=== PATIENT | female | born 1990 | race Caucasian/White ===

== ENCOUNTER 2016-03-10 18:11 | Emergency (ER) | payer MEDICAID, OTHER ==
[~2016-03-10] VITALS: Ht 165.1 cm; Wt 60.5 kg
[~2016-03-10 18:11] MED LIST: PRENTAB60
[2016-03-10 18:14] VITALS: BP 119/71; PULSE 104; RESP 14; TEMP 98.1; O2SAT 96
--- NOTE | 2016-03-10 20:03 | PD ---
HPI Chief Complaint: Skin Problem Time Seen by Provider: 20:00 Travel History International Travel<30 days: No Contact w/Intl Traveler<30days: No Traveled to known affect area: No History of Present Illness HPI 25-year-old white female 1 para 0 with approximately 20 week gestational age presents emergency Department with complaints of a rash which she has had now for nearly 2 months. She's had a history of eczema in the past and psoriasis. She saw a free lance model approximately one month ago when the rash seemed to be getting worse. She was told to take over-the- counter hydrocortisone cream and moisturizing cream. She has not seen an OB doctor yet. She states that she is here requesting a shot of steroids or oral prednisone. She has had no fever chills. She has had some runny nose, congestion and slight cough. She's noticed some increasing drainage from the skin around her breasts underneath her brassiere. She denies any nausea vomiting. No abdominal pain. No urinary symptoms. PFSH Past Medical History Anxiety: Yes ?: LMP: 10/05/15 : 1 Para: 0 Social History Alcohol Use: No Tobacco Use: No Substance Use: No Allergies-Medications (Allergen,Severity, Reaction): Coded Allergies: No Known Allergies (Unverified , 03/10/16) Reported Meds & Prescriptions Reported Meds & Active Scripts Active Reported 19 ( Vit W/ Docusate-Fe Fu) 1 Tab Tab Review of Systems Except as stated in HPI: all other systems reviewed are Neg Physical Exam Narrative GENERAL: This is a well-nourished, well-developed patient, in no apparent distress. The patient is examined with Adi present SKIN: The patient has patches of erythema with dry scaly skin excoriation. These are located to her forehead around her face, neck, upper and lower extremities. Under her right breast greater than left. Around her nipples area. HEAD: Atraumatic. Normocephalic. EYES: PERRL, EOMI, no discharge or injection. No scleral icterus. EARS: Clear NOSE: Nasal turbinates appear normal. THROAT: Mucosa pink and moist. Airway patent. NECK: Trachea midline. supple, moves head freely. LUNGS: Clear to auscultation. CV: Regular in rhythm. ABDOMEN: Soft nontender. Gravid uterus. EXT: No clubbing cyanosis or edema. Data Data Last Documented VS Vital Signs Date Time Temp Pulse Resp B/P Pulse Ox O2 Delivery O2 Flow Rate FiO2 03/10/16 18:14 98.1 104 14 119/71 96 Orders Diphenhydramine (Benadryl) (03/10/16 20:15) Prednisone (Deltasone) (03/10/16 20:15) MDM Medical Decision Making Medical Screen Exam Complete: Yes Emergency Medical Condition: Yes Medical Record Reviewed: Yes Differential Diagnosis MDM: High Differential diagnoses: Abscess, folliculitis, cellulitis, lymphangitis, abrasion, contact dermatitis Narrative Course Patient's given 50 g of Benadryl and 40 mg of prednisone. This is acute eczema Diagnosis Primary Impression: eczema exacerbation Patient Instructions: General Instructions Additional Instructions: Rest. Oatmeal or Aveeno bath. White Crisco. 25-50 mg of Benadryl every 6 hours as needed for itching. Prednisone. Recheck with your free lance model and OB within 1 week. Med/Other Pt SpecificInfo: Prescription(s) given, Wound Care Scripts Prednisone (Deltasone)20 Mg Tab20 Mg PO BID #14 TAB Prov:Cedrick Foreman MD 03/10/16 Disposition: 01 DISCHARGE HOME Condition: Stable Rc Marshall Mar 10, 2016 20:03
[2016-03-10] MEDS ORDERED: diphenhydrAMINE HCL 50 MG CAP PO ONE (20:15)
[2016-03-10] MEDS ORDERED: predniSONE 20 MG TAB PO ONE (20:15)
[2016-03-10] MEDS ORDERED: PRED-503 PO (20:16)
[2016-04-06] MEDS ORDERED: TRICTAB PO (17:30)
[2016-04-07] MEDS ORDERED: HYDR2.5O TOPICAL (21:31)
[2016-04-07] MEDS ORDERED: HYDR0.2O7 TOPICAL (21:31)
[2016-04-17] MEDS ORDERED: HYDR0.2O7 TOPICAL (09:49)
[2016-04-30] MEDS ORDERED: [UNRECOGNIZED DRUG - CODE] (17:10)
[2016-05-01] MEDS ORDERED: PRED20 PO (22:29)
[2016-05-14] MEDS ORDERED: HYDR2.5O TOPICAL (07:28)
[2016-06-01] MEDS ORDERED: TYLE325T PO (00:35)
[2016-06-07] MEDS ORDERED: HYDR2.5O TOPICAL (06:32)
[2016-06-07] MEDS ORDERED: PRED20 PO (06:32)
[2016-06-07] MEDS ORDERED: HYDR0.2O7 TOPICAL (06:32)
[2016-06-27] MEDS ORDERED: TETA1INJ6 IM (16:12)
[2016-07-04] MEDS ORDERED: PRED20 PO (17:28)
[2016-07-30] MEDS ORDERED: PRED20 PO (17:40)
[2016-07-30] MEDS ORDERED: HYDR0.2O7 TOPICAL (17:44)
== END 2016-03-10 20:54 | disposition home or self-care (01) ==
LOC: NEPB 18:11
DX: O26.892 Other specified pregnancy related conditions, second trimester (principal); L30.9 Dermatitis, unspecified; L40.9 Psoriasis, unspecified
CPT/HCPCS: 99283

== ENCOUNTER 2016-03-20 11:02 | Emergency (ER) | payer MEDICAID ==
[~2016-03-20] VITALS: Ht 165.1 cm; Wt 65.0 kg
[~2016-03-20 11:02] MED LIST changes: +PRED-503 PO
[2016-03-20 11:03] VITALS: BP 114/63; PULSE 105; RESP 14; TEMP 98.1; O2SAT 97
[2016-03-20] MEDS ORDERED: TRIA.025%T TOPICAL (13:02)
[2016-03-20] MEDS ORDERED: PRED20 PO (13:02)
[2016-03-20] MEDS ORDERED: VIST50CA PO (13:02)
--- NOTE | 2016-03-20 13:03 | PD ---
HPI Chief Complaint: Skin Problem Time Seen by Provider: 12:30 Travel History International Travel<30 days: No Contact w/Intl Traveler<30days: No Traveled to known affect area: No History of Present Illness HPI Patient is a 25-year-old female who presents emergency department for evaluation of a rash. Patient is 21 weeks with her first child, her symptoms started approximately 3 weeks ago. She was seen in the emergency Department 10 days ago and diagnosed with eczema, given a short course of oral steroids which she states improved her symptoms but when the steroids were completed her symptoms returned. She states that the rash is extremely itchy and for the last 2 days her face has become more red and aggravated, additionally rashes affecting her breasts. Eyes any wheezing, fevers, chills. PFSH Past Medical History Anxiety: Yes Musculoskeletal: Yes (eczema) ?: LMP: 23 WEEKS : 1 Para: 0 Family History Family History: Negative Social History Alcohol Use: No Tobacco Use: No Substance Use: No Allergies-Medications (Allergen,Severity, Reaction): Coded Allergies: No Known Allergies (Unverified , 03/14/16) Reported Meds & Prescriptions Reported Meds & Active Scripts Active Deltasone (Prednisone) 20 Mg Tab 20 Mg PO BID Reported 19 ( Vit W/ Docusate-Fe Fu) 1 Tab Tab Review of Systems Except as stated in HPI: all other systems reviewed are Neg General / Constitutional: No: Fever, Chills Skin: Positive Rash, Positive Itching, Positive Hives Physical Exam Narrative GENERAL: Well-nourished, well-developed patient. SKIN: Warm and dry. Hyperpigmented, well-demarcated plaques noted to bilateral arms, chest, breasts, face. No induration noted. HEAD: Normocephalic. EYES: No scleral icterus. No injection or drainage. NECK: Supple, trachea midline. No JVD or lymphadenopathy. CARDIOVASCULAR: Regular rate and rhythm without murmurs, gallops, or rubs. RESPIRATORY: Breath sounds equal bilaterally. No accessory muscle use. GASTROINTESTINAL: Abdomen soft, non-tender, nondistended. MUSCULOSKELETAL: No cyanosis, or edema. BACK: Nontender without obvious deformity. No CVA tenderness. Data Data Last Documented VS Vital Signs Date Time Temp Pulse Resp B/P Pulse Ox O2 Delivery O2 Flow Rate FiO2 1/24/17 11:03 98.1 105 14 114/63 97 Room Air [facility] Medical Decision Making Medical Screen Exam Complete: Yes Emergency Medical Condition: Yes Interpretation(s) Vital Signs Date Time Temp Pulse Resp B/P Pulse Ox O2 Delivery O2 Flow Rate FiO2 03/20/16 11:03 98.1 105 14 114/63 97 Room Air Differential Diagnosis Eczema versus PUPP versus atopic dermatitis during versus allergic reaction versus other Narrative Course Patient is a 25-year-old female who presents to the emergency department for evaluation of a rash to her arms, chest, breasts, face. Patient is a history of eczema, she was seen and evaluated emergency department 10 days ago and prescribed a short course of oral steroids which she states relieved her symptoms however when the therapy was completed and her symptoms return. Patient states her manager monitoring will not see her until her devops clears her, she cannot see her devops for 2 more weeks. Patient has no related complaints today. Physical presentation is consistent with eczema, atopic dermatitis of . Patient will be provided with a short course of oral steroids, topical steroid cream, Vistaril for symptom management. Patient was advised that her symptoms may continue until she delivers possibly for several weeks afterward. She was encouraged to follow-up with her BOTTOM MAN and manager monitoring. She was further encouraged to return to emergency department immediately for any new or worsening symptoms. Patient verbalized understanding of these instructions. Patient stable for discharge. Physician Communication Physician Communication Discussed with Dr. Aguiar Diagnosis Primary Impression: -related exacerbation of dermatosis Qualified Code: O99.712 - -related exacerbation of dermatosis, second trimester Referrals: [facility] [employer] Patient Instructions: General Instructions, at 19 to 22 Weeks (ED), Pruritic Urticarial Papules and Plaques of (ED) Additional Instructions: Follow-up with her BOTTOM MAN Follow-up with her manager monitoring Take medications as directed Apply cool compresses to affected area Avoid hot or prolonged showers Return to emergency department for any new or worsening symptoms Use topical cream sparingly. Use [id number] Benadryl as needed and as directed for itching during the day, Vistaril at night Med/Other Pt SpecificInfo: Prescription(s) given Scripts Prednisone 20 Mg Tab20 Mg PO DAILY 5 Days Ref 0 Prov:Lay Olivares 03/20/16 Hydroxyzine Pamoate (Vistaril)50 Mg Cap50 Mg PO HS PRN (ITCHING) 14 Days Ref 0 Prov:Lay Olivares 03/20/16 Triamcinolone Topical 0.025% Cream1 Applic TOPICAL BID #60 GM Ref 0 Prov:Lay Olivares 03/20/16 Disposition: 01 DISCHARGE HOME Condition: Stable Lay Olivares Mar 20, 2016 13:03
[2016-04-06] MEDS ORDERED: TRICTAB PO (17:30)
[2016-04-07] MEDS ORDERED: HYDR0.2O7 TOPICAL (21:31)
[2016-04-07] MEDS ORDERED: HYDR2.5O TOPICAL (21:31)
[2016-04-17] MEDS ORDERED: HYDR0.2O7 TOPICAL (09:49)
[2016-04-30] MEDS ORDERED: [UNRECOGNIZED DRUG - CODE] (17:10)
[2016-05-01] MEDS ORDERED: PRED20 PO (22:29)
[2016-05-14] MEDS ORDERED: HYDR2.5O TOPICAL (07:28)
[2016-06-01] MEDS ORDERED: TYLE325T PO (00:35)
[2016-06-07] MEDS ORDERED: HYDR0.2O7 TOPICAL (06:32)
[2016-06-07] MEDS ORDERED: PRED20 PO (06:32)
[2016-06-07] MEDS ORDERED: HYDR2.5O TOPICAL (06:32)
[2016-06-27] MEDS ORDERED: TETA1INJ6 IM (16:12)
[2016-07-04] MEDS ORDERED: PRED20 PO (17:28)
[2016-07-30] MEDS ORDERED: PRED20 PO (17:40)
[2016-07-30] MEDS ORDERED: HYDR0.2O7 TOPICAL (17:44)
== END 2016-03-20 13:27 | disposition home or self-care (01) ==
LOC: NEPB 11:02
DX: O99.712 Diseases of the skin and subcutaneous tissue complicating pregnancy, second trimester (principal); L98.9 Disorder of the skin and subcutaneous tissue, unspecified; Z3A.21 21 weeks gestation of pregnancy
CPT/HCPCS: 99283

== ENCOUNTER → 2016-03-22 | Outpatient (CLI) | payer MEDICAID ==
[~2016-03-22] MED LIST changes: +ACET1TAB86 PO; +HYDR0.2O7 TOPICAL; +HYDR2.5O TOPICAL; +IBUP-232 PO; +PRED20 PO; +PRED5TAB PO; +TETA1INJ6 IM; +TRIA.025%T TOPICAL; +TRICTAB PO; +TYLE325T PO; +VIST50CA PO; +[UNRECOGNIZED DRUG - CODE]
== END ==
LOC: HPND 10:00
PROVIDERS: ATTEND Family Medicine
DX: O09.30 Supervision of pregnancy with insufficient antenatal care, unspecified trimester (principal)
CPT/HCPCS: 76805

== ENCOUNTER → 2016-04-20 | Outpatient (CLI) | payer MEDICAID ==
[~2016-04-20] MED LIST changes: -PRED-503 PO; -PRENTAB60; -TRIA.025%T TOPICAL
== END ==
LOC: HPND 08:30
PROVIDERS: ATTEND Family Medicine
DX: O26.842 Uterine size-date discrepancy, second trimester (principal)
CPT/HCPCS: 76816

== ENCOUNTER → 2016-05-17 | Outpatient (CLI) | payer MEDICAID | LOC: CLAB 09:46 | PROVIDERS: ATTEND Family Medicine | DX: O09.899 Supervision of other high risk pregnancies, unspecified trimester (principal) | CPT/HCPCS: 36415; 86850; 86900; 86901; 90384; 96372; J2790 ==

== ENCOUNTER → 2016-05-31 | Emergency (ER) | payer MEDICAID ==
[~2016-05-31] MED LIST changes: +ACETAMINOPHEN 325 MG TAB PO ONE
[2016-06-01 00:09] LABS: BACTERIA, URINE RARE /hpf; BLOOD, URINE NEG (NEG); COMMENT (UR) CULT NOT INDICATED; CULTURE IF INDICATED CULT NOT INDICATED; GLUCOSE,URINE 70 mg/dL (NEG); KETONE, URINE NEG (NEG); MUCUS URINE FEW /lpf (OCC); NITRITE,URINE NEG (NEG); PH, URINE 6.5 (5.0-8.5); RENAL EPITHELIAL CELLS <1 /hpf; SQUAMOUS EPITHELIAL CELL URINE <1 /hpf (0-5); URINE COLOR YELLOW (YELLW/STRAW)
--- NOTE | 2016-06-01 00:38 | PD ---
HPI Chief Complaint right flank pain Date Seen: Jun 01, 2016 Time Seen: 12:20 (Dereje Rodriguez MD R2) Travel History International Travel<30 Days: No Contact w/Intl Traveler<30Days: No (Dereje Rodriguez MD) History of Present Illness HPI 25 year old G1 at 33/1 weeks gestation presents with right flank pain. It started 2 weeks ago. It is not associated with dysuria, frequent urination, or fevers/chills. It is exacerbated by twisting movements. She points to the lower right rib cage when identifying the pain. The pain is moderate in intensity. It comes in spasms. She has noticed it getting worse and wanted to get evaluated for possible kidney infection. She has been very physically active at work and makes a lot of twisting movements. She has good movements, no loss of fluid, no vaginal bleeding, and no contractions. She reports no significant complications in her to date. (Dereje Rodriguez MD) History Past Medical History Narrative Medical Eczema (Dereje Rodriguez MD) Obstetric History Obstetric History G1 Patient of Dr. Cotton No significant complications (Dereje Rodriguez MD) Past Surgical History Narrative Surgical None (Dereje Rodriguez MD) Family History Narrative Family History None (Dereje Rodriguez MD) Social History Alcohol Use: No Tobacco Use: No Substance Abuse: No (Dereje Rodriguez MD) Allergies-Medications (Allergen,Severity, Reaction): Coded Allergies: No Known Allergies (Unverified , 05/10/16) Home Meds Active Scripts Acetaminophen (Tylenol)325 Mg [id number] Mg PO Q6H PRN (BACK PAIN) #30 TAB Ref 0 Prov:Dereje Rodriguez MD R2 06/01/16 Hydrocortisone Topical 2.5% Oint1 Applic TOPICAL BID #1 GM Ref 0 Prov:Ronnie Cotton MD 05/14/16 Prednisone 20 Mg Tab20 Mg PO DAILY #5 TAB Ref 0 Prov:Ronnie Cotton MD 05/01/16 Rho D Immune Globulin (Human) Inj (Rhogam Ultra-Filtered Plus Inj)1,500 Unit Inj1 Units .XX ONCE #1 UNITS Prov:Ronnie Cotton MD 04/30/16 Hydrocortisone Valerate Topical 0.2% Oint1 Applic TOPICAL BID #45 GM Ref 0 Prov:Ronnie Cotton MD R2 04/17/16 Vit-Ferrous Fumarate ()1 Tab Tab1 Tab PO DAILY #30 TAB Ref 3 Prov:Ronnie Cotton MD R2 04/06/16 Hydroxyzine Pamoate (Vistaril)50 Mg Cap50 Mg PO HS PRN (ITCHING) 14 Days Ref 0 Prov:Lay Olivares SENIOR CONTROLLER 03/20/16 Review of Systems Except as stated in HPI: all other systems reviewed are Neg (Dereje Rodriguez MD R2) Physical Exam Narrative GENERAL: No distress, comfortable SKIN: No rash HEAD: Normocephalic and atraumatic. EYES: No scleral icterus. No injection or drainage. ENT: No nasal drainage noted. Mucous membranes pink. Airway patent. NECK: Supple, trachea midline. No JVD. CARDIOVASCULAR: Regular rate and rhythm without murmurs, gallops, or rubs. RESPIRATORY: Breath sounds equal bilaterally. No accessory muscle use. ABDOMEN/GI: Abdomen soft, non-tender, bowel sounds present, no rebound, no guarding Gravid to 33 weeks size GENITOURINARY: Uterine Contractions: None FHT's: Category: 1 Baseline: 140's Reactive: yes Variability: moderate Decels: none EXTREMITIES: No cyanosis or edema. BACK: Pain on palpation of the right lower rib cage, with spasms. : No CVA tenderness NEUROLOGICAL: Awake and alert. Motor and sensory grossly within normal limits. (Dereje Rodriguez MD R2) Data Data Vital Signs Reviewed: Yes Orders Urinalysis - C+S If Indicated (05/31/16 23:45) Labs Laboratory Tests Test 05/31/16 22:19 Urine Color YELLOW Urine Turbidity CLEAR Urine pH 6.5 Urine Specific [place] 1.023 Urine Protein NEG Urine Glucose (UA) 70 Urine Ketones NEG Urine Occult Blood NEG Urine Nitrite NEG Urine Bilirubin NEG Urine Urobilinogen LESS THAN 2.0 Urine Leukocyte Esterase NEG Urine RBC 2 Urine WBC 1 Urine Squamous Epithelial <1 Cells Urine Renal Epithelial Cells <1 Urine Amorphous Sediment RARE Urine Bacteria RARE Urine Mucus FEW Microscopic Urinalysis Comment CULT NOT INDICATED (Dereje Rodriguez MD R2) [facility] Medical Record Reviewed: Yes Interpretation(s) 25 year old with pain located in the lower right rib cage, with spasms when palpated. No CVA tenderness and no urinary symptoms. UA showing no UTI. - Will give Tylenol one time - Send home with prescription for Tylenol - Recommend rest, ice/heat, avoiding strenuous activity - Monitor baby, category 1 tracing and no contractions felt or observed - UA done, no evidence of UTI Narrative Course / MDM 25 year old female with muscle spasm/strain - Ice/heat - Rest - Tylenol PRN - Follow up with OB doctor (Dereje Rodriguez MD R2) Diagnosis Diagnosis: Primary Impression: Muscle spasm of back Disposition: DISCHARGE HOME Condition: Good Scripts Acetaminophen (Tylenol)325 Mg Pro030 Mg PO Q6H PRN (BACK PAIN) #30 TAB Ref 0 Prov:Dereje Rodriguez MD R2 06/01/16 Collaborating MD Comments discussed patient care and management with resident. Agree with discharge from ED (Lidia Ray MD) Dereje Rodriguez MD R2 Jun 01, 2016 00:37 Lidia Ray MD Jun 01, 2016 01:50
== END | disposition home or self-care (01) ==
LOC: HOBED 21:25
DX: O26.893 Other specified pregnancy related conditions, third trimester (principal); M62.830 Muscle spasm of back; Z3A.33 33 weeks gestation of pregnancy
CPT/HCPCS: 81001; 99284

== ENCOUNTER 2016-06-08 14:50 | Emergency (ER) | payer MEDICAID ==
[~2016-06-08 14:50] MED LIST changes: -ACET1TAB86 PO; -ACETAMINOPHEN 325 MG TAB PO ONE; -IBUP-232 PO; -PRED5TAB PO; -TETA1INJ6 IM
--- NOTE | 2016-06-08 16:02 | PD ---
HPI Chief Complaint abdominal pain Date Seen: Jun 08, 2016 (Ronnie Cotton MD R2) Travel History International Travel<30 Days: No Contact w/Intl Traveler<30Days: No Known Affected Area: No (Ronnie Cotton MD R2) History of Present Illness HPI Ms. Espinoza is a 25 yo F patient at 32 6/7 weeks ([facility] 07/28/2016) who presents with complaint of abdominal pain. Ms. Espinoza reports that her abdominal pain started this morning while at work; patient states that pain has been "constant " throughout the day. Patient describes pain as "pressure" that is predominantly in her lower abdomen. Patient also states that she has pain in the center of her back. Patient denies associated dysuria. Patient denies fever/chills. Patient reports normal bowel movements. Patient denies nausea/ vomiting. Patient does not think that pressures consistent with contractions. No headaches, visual changes, chest pain, leg swelling, or other symptoms reported. Patient reports that she has continued to feel normal movement , but that she feels it may be different than previously. Patient denies vaginal bleeding. Per review of EMR: Patient Rh-; received Rhogam after 28 weeks GA. US is without abnormalities. Patient with prolapsed cervix. Patient has severe eczema treated with oral and topical steroids. Para: 0 : 1 (Ronnie Cotton MD R2) History Past Medical History Narrative Medical Eczema Tobacco abuse Alcohol consumption Marijuana abuse Anxiety ADHD Cervical prolapse (Ronnie Cotton MD R2) Obstetric History Obstetric History G1 (Ronnie Cotton MD R2) Past Surgical History Surgical History: No Previous Surgery (Ronnie Cotton MD R2) Family History Narrative Family History Bipolar disorder HTN Sleep Apnea (Ronnie Cotton MD R2) Social History Narrative Social History Marijuana- pt is using during Tobacco- quit during Alcohol- significant consumption early in ; subsequently decreased Lives with mother and boyfriend; previously traveled frequently (Ronnie Cotton MD R2) Allergies-Medications (Allergen,Severity, Reaction): Coded Allergies: No Known Allergies (Unverified , 06/06/16) Home Meds Active Scripts Hydrocortisone Topical 2.5% Oint1 Applic TOPICAL BID #1 GM Ref 0 Prov:Ronnie Cotton MD R2 06/07/16 Prednisone 20 Mg Tab20 Mg PO DAILY #5 TAB Ref 0 Prov:Ronnie Cotton MD R2 06/07/16 Hydrocortisone Valerate Topical 0.2% Oint1 Applic TOPICAL BID #45 GM Ref 0 Prov:Ronnie Cotton MD R2 06/07/16 Acetaminophen (Tylenol)325 Mg [id number] Mg PO Q6H PRN (BACK PAIN) #30 TAB Ref 0 Prov:Dereje Rodriguez MD R2 06/01/16 Rho D Immune Globulin (Human) Inj (Rhogam Ultra-Filtered Plus Inj)1,500 Unit Inj1 Units .XX ONCE #1 UNITS Prov:Ronnie Cotton MD R2 04/30/16 Vit-Ferrous Fumarate ()1 Tab Tab1 Tab PO DAILY #30 TAB Ref 3 Prov:Ronnie Cotton MD R2 04/06/16 Hydroxyzine Pamoate (Vistaril)50 Mg Cap50 Mg PO HS PRN (ITCHING) 14 Days Ref 0 Prov:Lay Olivares 03/20/16 Discontinued Scripts Hydrocortisone Topical 2.5% Oint1 Applic TOPICAL BID #1 GM Ref 0 Prov:Ronnie Cotton MD R2 05/14/16 Prednisone 20 Mg Tab20 Mg PO DAILY #5 TAB Ref 0 Prov:Ronnie Cotton MD R2 05/01/16 Hydrocortisone Valerate Topical 0.2% Oint1 Applic TOPICAL BID #45 GM Ref 0 Prov:Ronnie Cotton MD R2 04/17/16 Review of Systems General / Constitutional: No: Fever Eyes: No: Blurred Vision HENT: No: Headaches Cardiovascular: No: Chest Pain or Discomfort Respiratory: No: Short of Breath Gastrointestinal: Abdominal Pain, No: Nausea, Vomiting Genitourinary: No: Urgency, Dysuria Skin: Rash (chronic eczema) (Ronnie Cotton MD R2) Physical Exam T 98.6 RR 20 BP 104/70 HR 96 Narrative GENERAL: Well-nourished, well-developed patient. SKIN: Warm and dry. HEAD: Normocephalic and atraumatic. EYES: No scleral icterus. No injection or drainage. ENT: No nasal drainage noted. Mucous membranes pink. Airway patent. NECK: Supple, trachea midline. No JVD. CARDIOVASCULAR: Regular rate and rhythm without murmurs. Normal peripheral perfusion RESPIRATORY: CTAB, normal rate ABDOMEN/GI: Abdomen soft, non-tender, bowel sounds present, no rebound, no guarding Gravid Uterine Contractions: none/irritability FHT's: Category: 1 Baseline: 140 Reactive: Y Variability: Mod Decels: None (Ronnie Cotton MD R2) Data Data Vital Signs Reviewed: Yes (Ronnie Cotton MD R2) MDM Medical Record Reviewed: Yes Narrative Course / MDM 25 yo F patient at 32 6/7 weeks ([facility] 07/28/2016) Category 1 rhythm No evidence of contractions on CTG Complaint abdominal pain which is constant and pressure-like; patient also complains of back pain Plan: Monitor EFM/monitor for contractions Interval History: -Category 1 rhythm x>20 minutes -Patient provided supplemental history that she believes her abdominal pain has resolved at this time. She states that she believes it was largely related to standing for prolonged period at work. Plan: -Patient deemed stable for discharge home and routine follow-up. Patient will return to OB ED with worsening abdominal pain or occurrence of new symptoms. Will provide patient with letter regarding work accommodations during . (Ronnie Cotton MD R2) Attending Attestation Patient seen and evaluated with resident under direct supervision, agree with assessment and plan. (Jer Christensen MD) Diagnosis Diagnosis: Primary Impression: Abdominal cramping Additional Impression: Broad ligament pain Disposition: 01 DISCHARGE HOME Condition: Stable Patient Instructions: General Instructions, Abdominal Pain in (ED), Movement (ED) Departure Forms: Ronnie Cotton MD R2 Jun 08, 2016 16:02 Jer Christensen MD Jun 08, 2016 18:22
[2016-06-27] MEDS ORDERED: TETA1INJ6 IM (16:12)
[2016-07-04] MEDS ORDERED: PRED20 PO (17:28)
[2016-07-30] MEDS ORDERED: PRED20 PO (17:40)
[2016-07-30] MEDS ORDERED: HYDR0.2O7 TOPICAL (17:44)
== END 2016-06-08 17:19 | disposition home or self-care (01) ==
LOC: HOBED 14:50
DX: O26.893 Other specified pregnancy related conditions, third trimester (principal); R10.9 Unspecified abdominal pain; R10.2 Pelvic and perineal pain; F12.90 Cannabis use, unspecified, uncomplicated; Z72.89 Other problems related to lifestyle
CPT/HCPCS: 59025

== ENCOUNTER 2016-07-23 00:29 | Inpatient (IN) | payer MEDICAID ==
[2016-07-23] VITALS (54 sets, daily range): BP systolic 92–133; BP diastolic 46–85; PULSE 54–131; RESP 16–20; TEMP 98–98.8
[~2016-07-23] VITALS: Ht 162.6 cm; Wt 69.9 kg
[~2016-07-23 00:29] MED LIST changes: -[UNRECOGNIZED DRUG - CODE]
[2016-07-23] MEDS ORDERED: LACTATED RINGER'S 1000 ML INJ 1,000 ML IV PRN (01:36)
[2016-07-23] MEDS ORDERED: LACTATED RINGER'S 1000 ML INJ 1,000 ML IV SCH (01:36)
[2016-07-23] MEDS ORDERED: LIDOCAINE HCL 1% 50 ML VIAL INFIL PRN (01:45)
[2016-07-23] MEDS ORDERED: MINERAL OIL 10 ML VIAL TOPICAL PRN (01:45)
[2016-07-23] MEDS ORDERED: LIDOCAINE HCL 1% 50 ML VIAL I-DERMAL PRN (01:45)
[2016-07-23] MEDS ORDERED: OXYTOCIN 30 UNITS-500ML PREMIX 500 ML IV ONE (01:45)
[2016-07-23] MEDS ORDERED: SODIUM CHLORID 0.9% 500 ML INJ 500 ML IV PRN (01:45)
[2016-07-23] MEDS ORDERED: ONDANSETRON HCL 4 MG/2 ML VIAL IV PRN (01:45)
[2016-07-23] MEDS ORDERED: PENICILLIN G POTASSIUM INJ 5,000,000 UNITS in SODIUM CHLORIDE 0.9% INJ 100 ML IV ONE (01:45)
[2016-07-23] MEDS ORDERED: CITRIC ACID-SODIUM CITRATE LIQ 30 ML UDC PO SCH (01:45)
[2016-07-23 01:46] LABS: BACTERIA, URINE RARE /hpf; BLOOD, URINE NEG (NEG); COMMENT (UR) CULT NOT INDICATED; CULTURE IF INDICATED CULT NOT INDICATED; GLUCOSE,URINE NEG (NEG); KETONE, URINE NEG (NEG); NITRITE,URINE NEG (NEG); PH, URINE 6.5 (5.0-8.5); URINE COLOR LIGHT-YELLOW (YELLW/STRAW)
[2016-07-23] MEDS ORDERED: SODIUM CHLOR 0.9% 1000 ML INJ 1,000 ML IV PRN (01:56)
--- NOTE | 2016-07-23 02:11 | PD ---
HPI Chief Complaint Contractions Date Seen: July 23, 2016 (Cosmo Santana MD R1) Travel History International Travel<30 Days: No Contact w/Intl Traveler<30Days: No Known Affected Area: No (Cosmo Santana MD R1) History of Present Illness HPI Ms. Espinoza is a 25 y/o G1PO at 39/2 with a PMHx of eczema, anxiety, and ADHD with intrapartum marijuana, tobacco, and alcohol use who is presenting to the [facility] with contractions. She states that starting this morning she began to feel irregularly spaced contractions with passing of her mucus plug. At approximately 1900 she started to feel regularly spaced contractions that have since intensified and have shorted to every 3-4 minutes per patient. She endorses good movement and denies any leakage of fluid or vaginal discharge/bleeding. She is GBS positive per chart review. She states that her was complicated by a prolapsed cervix. This was treated with conservative management and was of normal length per her OB US. Her was also complicated by severe eczema of the face and flexural areas of her extremities. Her symptoms have been controlled with 5 days of Prednisone 20mg daily per month as well as using topical steroids. She does endorse alcohol use as well as marijuana during her . She states that she tapered her use since knowing she became and stopped smoking tobacco at that time. Otherwise she has no complaints and denies any fevers, chills, SOB, chest pain, NVD, or calf tenderness. (Cosmo Santana MD R1) History Past Medical History Narrative Medical Eczema Tobacco abuse Alcohol consumption Marijuana abuse Anxiety ADHD Cervical prolapse (Cosmo Santana MD R1) Obstetric History Obstetric History (Cosmo Santana MD R1) Past Surgical History Narrative Surgical None reported (Cosmo Santana MD R1) Family History Narrative Family History Bipolar disorder HTN Sleep Apnea (Cosmo Santana MD R1) Social History Narrative Social History Marijuana- pt is using during Tobacco- quit during Alcohol- significant consumption early in ; subsequently decreased Lives with mother and boyfriend; previously traveled frequently (Cosmo Santana MD R1) Allergies-Medications (Allergen,Severity, Reaction): Coded Allergies: No Known Allergies (Unverified , 07/23/16) Home Meds Active Scripts Hydrocortisone Topical 2.5% Oint1 Applic TOPICAL BID #1 GM Ref 0 Prov:Chotas,Ronnie N MD R2 06/07/16 Hydrocortisone Valerate Topical 0.2% Oint1 Applic TOPICAL BID #45 GM Ref 0 Prov:Ronnie Cotton MD R2 06/07/16 Vit-Ferrous Fumarate ()1 Tab Tab1 Tab PO DAILY #30 TAB Ref 3 Prov:Ronnie Cotton MD R2 04/06/16 Reported Medications Prednisone 20 Mg Tab20 Mg PO DAILY #5 TAB Ref 0 07/23/16 Discontinued Reported Medications Prednisone 5 Mg Tab5 Mg PO DAILY 5 Days Ref 1 07/23/16 Discontinued Scripts Prednisone 20 Mg Tab20 Mg PO DAILY #5 TAB Ref 0 Prov:Ronnie Cotton MD R2 07/04/16 Acetaminophen (Tylenol)325 Mg Yqx600 Mg PO Q6H PRN (BACK PAIN) #30 TAB Ref 0 Prov:Dereje Rodriguez MD R2 06/01/16 Hydroxyzine Pamoate (Vistaril)50 Mg Cap50 Mg PO HS PRN (ITCHING) 14 Days Ref 0 Prov:Lay Olivares 03/20/16 Review of Systems General / Constitutional: No: Fever Eyes: No: Visual changes HENT: No: Headaches Cardiovascular: No: Chest Pain or Discomfort Respiratory: No: Short of Breath Gastrointestinal: No: Nausea, Vomiting, Diarrhea Genitourinary: Urgency, Frequency Musculoskeletal: No: Pain Skin: Rash Neurologic: No: Weakness Psychiatric: Anxiety (Cosmo Santana MD R1) Physical Exam Narrative GENERAL: Well-nourished, well-developed patient. SKIN: Warm and dry. HEAD: Normocephalic and atraumatic. EYES: No scleral icterus. No injection or drainage. ENT: No nasal drainage noted. Mucous membranes pink. Airway patent. NECK: Supple, trachea midline. No JVD. CARDIOVASCULAR: Regular rate and rhythm without murmurs, gallops, or rubs. RESPIRATORY: Breath sounds equal bilaterally. No accessory muscle use. ABDOMEN/GI: Abdomen soft, non-tender, bowel sounds present, no rebound, no guarding Gravid to 39 weeks size GENITOURINARY: External Genitalia: intact and normal in appearance Cervix: Mid Dilatation: 4-5cm Effacement: 90% Station: -1 Presentation: Vertex Membranes: Intact Uterine Contractions: Q4m FHT's: Category: 1 Baseline: 145 Reactive: + Variability: Moderate Decels: None EXTREMITIES: No cyanosis or edema. Areas of excoriations on extremities consistent with eczema. BACK: Nontender without obvious deformity. No CVA tenderness. NEUROLOGICAL: Awake and alert. Motor and sensory grossly within normal limits. Five out of 5 muscle strength in all muscle groups. Normal speech. (Cosmo Santana MD R1) Data Data Vital Signs Reviewed: Yes Orders Ob (2e) Additional Admit Info (07/23/16 01:20) (Cosmo Santana MD R1) MDM Medical Record Reviewed: Yes Plan Ms. Espinoza is a 25 y/o G1PO at 39/2 presenting with regular contractions. She will be admitted for active labor. 1. at 39 weeks -Continue routine antepartum care -Admission orders placed -UA ordered -Patient desires epidural anesthesia, orders placed 2. GBS Positive -Pen G ordered per protocol 3. Cervical Prolapse During -Cervix currently dilated to 4-5cm without abnormality -Continue to monitor SDW: Dr. Avila DW: Dr. Ray (Cosmo Santana MD R1) Diagnosis Diagnosis: Primary Impression: with 39 completed weeks gestation Collaborating MD Comments Patient with a history of antepartum tobacco, marijuana, and ETOH. Admitted due to labor (Lidia Ray MD) Cosmo Santana MD R1 July 23, 2016 02:11 Lidia Ray MD July 23, 2016 09:24
--- NOTE | 2016-07-23 02:14 | HHI.HP ---
History & Physical H&P HPI Chief Complaint Contractions Date Seen: July 23, 2016 Travel History International Travel<30 Days: No Contact w/Intl Traveler<30Days: No Known Affected Area: No History of Present Illness HPI Ms. Espinoza is a 25 y/o G1PO at 39/2 with a PMHx of eczema, anxiety, and ADHD with intrapartum marijuana, tobacco, and alcohol use who is presenting to the [facility] with contractions. She states that starting this morning she began to feel irregularly spaced contractions with passing of her mucus plug. At approximately 1900 she started to feel regularly spaced contractions that have since intensified and have shorted to every 3-4 minutes per patient. She endorses good movement and denies any leakage of fluid or vaginal discharge/bleeding. She is GBS positive per chart review. She states that her was complicated by a prolapsed cervix. This was treated with conservative management and was of normal length per her OB US. Her was also complicated by severe eczema of the face and flexural areas of her extremities. Her symptoms have been controlled with 5 days of Prednisone 20mg daily per month as well as using topical steroids. She does endorse alcohol use as well as marijuana during her . She states that she tapered her use since knowing she became and stopped smoking tobacco at that time. Otherwise she has no complaints and denies any fevers, chills, SOB, chest pain, NVD, or calf tenderness. History (Limited) History Past Medical History Narrative Medical Eczema Tobacco abuse Alcohol consumption Marijuana abuse Anxiety ADHD Cervical prolapse Obstetric History Obstetric History Past Surgical History Narrative Surgical None reported Family History Narrative Family History Bipolar disorder HTN Sleep Apnea Social History Narrative Social History Marijuana- pt is using during Tobacco- quit during Alcohol- significant consumption early in ; subsequently decreased Denies other illicit drug use Lives with mother and boyfriend; previously traveled frequently Allergies-Medications Allergies-Medications (Allergen,Severity, Reaction): Coded Allergies: No Known Allergies (Unverified , 07/16/16) Home Meds Active Scripts Prednisone 20 Mg Tab20 Mg PO DAILY #5 TAB Ref 0 Prov:Ronnie Cotton MD R2 07/04/16 Hydrocortisone Topical 2.5% Oint1 Applic TOPICAL BID #1 GM Ref 0 Prov:Ronnie Cotton MD R2 06/07/16 Hydrocortisone Valerate Topical 0.2% Oint1 Applic TOPICAL BID #45 GM Ref 0 Prov:Ronnie Cotton MD R2 06/07/16 Acetaminophen (Tylenol)325 Mg [id number] Mg PO Q6H PRN (BACK PAIN) #30 TAB Ref 0 Prov:Dereje Rodriguez MD R2 06/01/16 Vit-Ferrous Fumarate ()1 Tab Tab1 Tab PO DAILY #30 TAB Ref 3 Prov:Ronnie Cotton MD R2 04/06/16 Hydroxyzine Pamoate (Vistaril)50 Mg Cap50 Mg PO HS PRN (ITCHING) 14 Days Ref 0 Prov:Lay Olivares Ann MEDICAL SERVICES ASSISTANT 03/20/16 ROS Review of Systems General / Constitutional: No: Fever Eyes: No: Visual changes HENT: No: Headaches Cardiovascular: No: Chest Pain or Discomfort Respiratory: No: Short of Breath Gastrointestinal: No: Nausea, Vomiting, Diarrhea Genitourinary: Urgency, Frequency Musculoskeletal: No: Pain Skin: Rash Neurologic: No: Weakness Psychiatric: Anxiety Physical Exam Physical Exam Narrative GENERAL: Well-nourished, well-developed patient. SKIN: Warm and dry. HEAD: Normocephalic and atraumatic. EYES: No scleral icterus. No injection or drainage. ENT: No nasal drainage noted. Mucous membranes pink. Airway patent. NECK: Supple, trachea midline. No JVD. CARDIOVASCULAR: Regular rate and rhythm without murmurs, gallops, or rubs. RESPIRATORY: Breath sounds equal bilaterally. No accessory muscle use. ABDOMEN/GI: Abdomen soft, non-tender, bowel sounds present, no rebound, no guarding Gravid to 39 weeks size GENITOURINARY: External Genitalia: intact and normal in appearance Cervix: Mid Dilatation: 4-5cm Effacement: 90% Station: -1 Presentation: Vertex Membranes: Intact Uterine Contractions: Q4m FHT's: Category: 1 Baseline: 145 Reactive: + Variability: Moderate Decels: None EXTREMITIES: No cyanosis or edema. Areas of excoriations on extremities consistent with eczema. BACK: Nontender without obvious deformity. No CVA tenderness. NEUROLOGICAL: Awake and alert. Motor and sensory grossly within normal limits. Five out of 5 muscle strength in all muscle groups. Normal speech. Data Data Data Vital Signs Reviewed: Yes Orders Ob (2e) Additional Admit Info (07/23/16 01:20) [facility] Medical Record Reviewed: Yes Plan Ms. Espinoza is a 25 y/o G1PO at 39/2 presenting with regular contractions. She will be admitted for active labor. 1. at 39 weeks -Continue routine antepartum care -Admission orders placed -UA ordered -Patient desires epidural anesthesia, orders placed 2. GBS Positive -Pen G ordered per protocol 3. Cervical Prolapse During -Cervix currently dilated to 4-5cm without abnormality -Continue to monitor SDW: Dr. Avila DW: Dr. Ray Diagnosis Diagnosis: Primary Impression: with 39 completed weeks gestation (Cosmo Satnana MD R1) Collaborating MD Comments Patient admitted for labor, GBS positive will treat H/O substance abuse in (Lidia Ray MD) Cosmo Santana MD R1 July 23, 2016 02:14 Lidia Ray MD July 23, 2016 09:25
[2016-07-23] MEDS ORDERED: PRED5TAB PO (02:15)
[2016-07-23] MEDS ORDERED: PRED20 PO (02:15)
[2016-07-23 02:40] LABS: AUTOMATED NEUTROPHIL # 6.8 TH/MM3 (1.8-7.7); BASOPHIL # 0.1 TH/MM3 (0-0.2); BASOPHIL % 0.9 % (0.0-2.0); EOSINOPHIL # 0.4 TH/MM3 (0-0.4); EOSINOPHIL % 3.6 % (0.0-4.0); HEMO FLAGS DIFF FINAL; LYMPH % 22.6 % (9.0-44.0); LYMPHOCYTE # 2.4 TH/MM3 (1.0-4.8); MEAN CELL VOLUME 90.4 FL (80.0-100.0); MEAN CORPUSCULAR HEMOGLOBIN 30.7 PG (27.0-34.0); MEAN CORPUSCULAR HGB CONC 33.9 % (32.0-36.0); MONO % 7.8 % (0.0-8.0); NEUT % 65.1 % (16.0-70.0); PLATELET COUNT 168 TH/MM3 (150-450); RED BLOOD COUNT 3.99 MIL/MM3 (4.00-5.30); RED CELL DISTRIBUTION WIDTH 12.5 % (11.6-17.2); WHITE BLOOD COUNT 10.5 TH/MM3 (4.0-11.0)
[2016-07-23] MEDS ORDERED: ePHEDrine/NS 25 MG/5 ML SYR ONE (03:44)
[2016-07-23] MEDS ORDERED: fentaNYL 2MCG-BUPIV 0.125% INJ 100 ML ONE (03:44)
[2016-07-23] MEDS ORDERED: DO NOT ADMINISTER ANTICOAGULANTS PRN (04:45)
[2016-07-23] MEDS ORDERED: ePHEDrine/NS 25 MG/5 ML SYR IV PRN (04:45)
[2016-07-23] MEDS ORDERED: NO SYSTEM NARCOTICS PRN (04:45)
[2016-07-23] MEDS ORDERED: fentaNYL 2MCG-BUPIV 0.125% 100 ML EPIDURAL SCH (04:45)
[2016-07-23] MEDS ORDERED: PENICILLIN G POTASSIUM INJ 2,500,000 UNITS in SODIUM CHLORIDE 0.9% INJ 100 ML IV SCH (05:45)
[2016-07-23 07:42] LABS: AMPHETAMINE, URINE NEG (NEG); BARBITURATES, URINE NEG (NEG); COCAINE, URINE NEG (NEG)
[2016-07-23] MEDS ORDERED: OXYTOCIN 10 UNIT/ML AMP ONE (08:18)
--- NOTE | 2016-07-23 08:36 | PD.OB.DELI ---
Delivery Date: July 23, 2016 Anesthesia: Epidural Episiotomy: Right mediolateral Vaginal Delivery: Normal Presentation: Occiput anterior Nuchal Cord: x1 Delayed cord clamping (45 sec): No (due to tight nuchal cord) Infant: Female One Minute : 9 Five Minute : 9 Weight: 2965g Placenta: Spontaneous delivery Laceration: Episiotomy Repair: Chromic running Additional Information Ritgens maneuver preformed, was not successful. Midline episiotomy cut due to tight vaginal ring and prolonged bradycardia. Repaired with 3-0 chronic. Hemostasis achieved. (Zeinab Kay MD R2) Collaborating MD Comments under my direct supervision. (Lidia Ray MD) Zeinab Kay MD R2 July 23, 2016 08:36 Lidia Ray MD July 23, 2016 09:27
[2016-07-23] MEDS ORDERED: oxyCODONE/ACETAMINOPHEN 5 MG/325 MG TAB PO PRN ×2 (08:45)
[2016-07-23] MEDS ORDERED: WITCH HAZEL 50%/GLYCERIN 12.5% 40 PAD JAR TOPICAL PRN (08:45)
[2016-07-23] MEDS ORDERED: SODIUM CHLORIDE 0.9% FLUSH 10 ML FLUSH IV FLUSH PRN (08:45)
[2016-07-23] MEDS ORDERED: ZOLPIDEM TARTRATE 5 MG TAB PO PRN (08:45)
[2016-07-23] MEDS ORDERED: DOCUSATE SODIUM 50 MG/SENNA 8.6 MG TAB PO PRN (08:45)
[2016-07-23] MEDS ORDERED: ALUMINUM/MAGNESIUM/SIMETH 30 ML CUP PO PRN (08:45)
[2016-07-23] MEDS ORDERED: BENZOCAINE 20% TOPICAL SPRAY 60 ML CAN TOPICAL PRN (08:45)
[2016-07-23] MEDS ORDERED: ONDANSETRON ODT 4 MG TAB PO PRN (08:45)
[2016-07-23] MEDS ORDERED: SODIUM CHLORIDE 0.9% FLUSH 10 ML FLUSH IV FLUSH SCH (09:00)
[2016-07-23] MEDS ORDERED: DIPHTH/TETANUS/ACEL PERTUSSIS (BOOSTER) 0.5 ML VIAL/PFS IM ONE (16:00)
[2016-07-23] MEDS ORDERED: MEASLES, MUMPS, RUBELLA VACCINE 0.5 ML VIAL SQ ONE (16:00)
[2016-07-23] MEDS: IBUPROFEN 600 MG TAB PO PRN (16:05)
[2016-07-24] MEDS: IBUPROFEN 600 MG TAB PO PRN ×4 (03:31→21:38)
[2016-07-24 08:00] VITALS: BP 117/74; PULSE 66; RESP 18; TEMP 97.5
--- NOTE | 2016-07-24 08:30 | HHI.OB ---
Subjective Post Day: 1 Remarks Pt seen and examined this morning. day # 1 AFVSS overnight. Decreased lochia. Denies dysuria. No breast tenderness. She is feeding the baby via breast and bottle. Appetite good. No nausea or vomiting. Patient has not yet had a bowel movement. -flatus. Ambulating well. Denies calf pain or shortness of breath. Otherwise, she is doing well this morning and has no other concerns. Objective Vitals/I&O Vital Signs Date Time Temp Pulse Resp B/P Pulse Ox O2 Delivery O2 Flow Rate FiO2 07/23/16 20:21 98.0 16 07/23/16 20:21 54 126/69 07/23/16 10:55 98.4 68 17 122/66 07/23/16 09:45 105 110/61 07/23/16 09:30 90 123/78 07/23/16 09:15 95 128/80 07/23/16 09:00 86 129/85 07/23/16 08:46 75 120/67 07/23/16 08:32 73 124/67 Objective Remarks GENERAL: Well-nourished, well-developed patient. CARDIOVASCULAR: Regular rate and rhythm without murmurs, gallops, or rubs. RESPIRATORY: Breath sounds equal bilaterally. No accessory muscle use. ABDOMEN/GI: Abdomen soft, non-tender. Fundus: Firm, non-tender at umbilicus. GENITOURINARY: Light to moderate bleeding. EXTREMITIES: No cyanosis or edema, non-tender, without signs of DVT. Medications and IVs Current Medications Medications (Trade) Dose Ordered Sig/[facility] Route Start Time Stop Time Status Last Admin (NS Flush) 2 ml BID IV FLUSH 07/23/16 09:00 (NS Flush) 2 ml UNSCH PRN IV FLUSH 07/23/16 08:45 (Tylenol) 650 mg Q4H PRN PO 07/23/16 08:45 (Motrin) 600 mg Q6H PRN PO 07/23/16 08:45 07/24/16 03:31 (Percocet 5-325 Mg) 1 tab Q4H PRN PO 07/23/16 08:45 (Percocet 5-325 Mg) 2 tab Q4H PRN PO 07/23/16 08:45 (Americaine 20% Top Spr) 1 spray Q4H PRN TOPICAL 07/23/16 08:45 (Tucks Pads) 1 applic QID PRN TOPICAL 07/23/16 08:45 (Enedina-Colace) 2 tab Q12H PRN PO 07/23/16 08:45 (Ambien) 5 mg HS PRN PO 07/23/16 08:45 (Mag-Al Plus Susp Liq) 15 ml Q8H PRN PO 07/23/16 08:45 (Zofran Odt) 4 mg Q6H PRN PO 07/23/16 08:45 Assessment/Plan Assessment and Plan 25 y/o female who is PPD# 1 s/p . -Continue routine care. -Percocet and Motrin PRN pain. -Encouraged OOB. Advised pelvic rest for 6 wks. -Re: ctrl, she would like to further discuss her options with Dr. Cotton. -Anticipate discharge tomorrow. MD Rahul Isidro Dr., Mariaah MD R2 July 24, 2016 08:30
[2016-07-24] MEDS: ACETAMINOPHEN 325 MG TAB PO PRN ×2 (15:55→21:38)
[2016-07-24 20:32] VITALS: BP 108/61; PULSE 62; RESP 16; TEMP 97.9
--- NOTE | 2016-07-25 08:50 | HHI.OB ---
Subjective Post Day: 2 Remarks Pt seen and examined this morning. day # 2 AFVSS overnight. Decreased lochia. Denies dysuria. No breast tenderness. She is feeding the baby via breast and bottle. Appetite good. No nausea or vomiting. has had a bowel movement. +flatus. Ambulating well. Denies calf pain or shortness of breath. Patient reports that she has a history of cervical prolapse and noticed tissue protruding from her vagina but believes this may have been a blood clot. Otherwise, she is doing well this morning and has no other concerns. Objective Vitals/I&O Vital Signs Date Time Temp Pulse Resp B/P Pulse Ox O2 Delivery O2 Flow Rate FiO2 07/24/16 20:32 97.9 62 16 108/61 Objective Remarks GENERAL: Well-nourished, well-developed patient. CARDIOVASCULAR: Regular rate and rhythm without murmurs, gallops, or rubs. RESPIRATORY: Breath sounds equal bilaterally. No accessory muscle use. ABDOMEN/GI: Abdomen soft, non-tender. Fundus: Firm, non-tender at umbilicus. GENITOURINARY: No tissue protruding from the vaginal opening on inspection. Bimanual exam performed. Valsalva maneuver performed. No cervical or uterine prolapse appreciated. Light bleeding, no clots. EXTREMITIES: No cyanosis or edema, non-tender, without signs of DVT. Medications and IVs Current Medications Medications (Trade) Dose Ordered Sig/[facility] Route Start Time Stop Time Status Last Admin (NS Flush) 2 ml BID IV FLUSH 07/23/16 09:00 (NS Flush) 2 ml UNSCH PRN IV FLUSH 07/23/16 08:45 (Tylenol) 650 mg Q4H PRN PO 07/23/16 08:45 07/24/16 21:38 (Motrin) 600 mg Q6H PRN PO 07/23/16 08:45 07/24/16 21:38 (Percocet 5-325 Mg) 1 tab Q4H PRN PO 07/23/16 08:45 (Percocet 5-325 Mg) 2 tab Q4H PRN PO 07/23/16 08:45 (Americaine 20% Top Spr) 1 spray Q4H PRN TOPICAL 07/23/16 08:45 (Tucks Pads) 1 applic QID PRN TOPICAL 07/23/16 08:45 (Enedina-Colace) 2 tab Q12H PRN PO 07/23/16 08:45 (Ambien) 5 mg HS PRN PO 07/23/16 08:45 (Mag-Al Plus Susp Liq) 15 ml Q8H PRN PO 07/23/16 08:45 (Zofran Odt) 4 mg Q6H PRN PO 07/23/16 08:45 Assessment/Plan Assessment and Plan 25 y/o female who is PPD# 2 s/p . -Continue routine care. -Percocet and Motrin PRN pain. -No cervical or uterine prolapse appreciated on exam -Encouraged OOB. Advised pelvic rest for 6 wks. -Re: ctrl, she would like to further discuss her options with Dr. Cotton, she is interested in getting an IUD. -Anticipate discharge today dw MD Rahul Stephens,Zeinab MONTENEGRO R2 July 25, 2016 08:50
[2016-07-25 09:00] VITALS: BP 122/69; PULSE 93; RESP 18; TEMP 98.9
[2016-07-25] MEDS ORDERED: ACET1TAB86 PO (10:32)
[2016-07-25] MEDS ORDERED: IBUP-232 PO (10:32)
--- NOTE | 2016-07-25 10:33 | HHI.DCPOC ---
Discharge Care Plan Diagnosis: (1) Late care (2) (spontaneous vaginal delivery) Report Symptoms to Your Doctor -Temperature above 100.5 degrees -Redness, of incision or excessive or foul smelling drainage -Unusual pain or calf pain -Increased vaginal bleeding -Painful or difficulty urinating -Feelings of extreme sadness or anxiety after 2 weeks Goals to Promote Your Health * To prevent worsening of your condition and complications, please follow-up with your doctor within 6 weeks. * To maintain your health at the optimal level, stay well-hydrated, eat a balanced diet, exercise regularly. Directions to Meet Your Goals Take your medications as prescribed Follow your dietary instruction Follow activity as directed Ensure plenty of rest for recovery Drink fluids for hydration Keep your appointments as scheduled Take your immunizations and boosters as scheduled If your symptoms worsen call your PCP, if no PCP go to Urgent Care Center or Emergency Room Smoking is Dangerous to Your Health. Avoid second hand smoke Call the 24-hour crisis hotline for domestic abuse at Dereje Johnson MD R1 July 25, 2016 10:33
[2016-07-26 16:32] LABS: BATH SALTS (MDPV) UR NEG (NEG); ECSTASY (MDMA) UR NEG (NEG); GABAPENTIN UR NEG (NEG); HEROIN (6-ACETYLMORPHINE) UR NEG (NEG); HYDROMORPHONE U NEG (NEG); K2 SPICE UR NEG (NEG); OBMETHADONE UR NEG (NEG); OXYCODONE (PERCODAN) NEG (NEG); PHENCYCLIDINE URINE NEG (NEG)
[2016-07-30] MEDS ORDERED: PRED20 PO (17:40)
[2016-07-30] MEDS ORDERED: HYDR0.2O7 TOPICAL (17:44)
== END 2016-07-25 14:06 | disposition home or self-care (01) | DRG 775 ==
LOC: HOBED 00:29 → H2EB 01:24 → H1EA 10:27
PROVIDERS: ADMIT Obstetrics & Gynecology Obstetrics; ATTEND Obstetrics & Gynecology Obstetrics
PROC: 10E0XZZ Delivery of Products of Conception, External Approach (ICD-10-PCS; principal; 2016-07-23)
PROC: 0W8NXZZ Division of Female Perineum, External Approach (ICD-10-PCS; 2016-07-23)
PROC: 3E0S3CZ (ICD-10-PCS; 2016-07-23)
PROC: 00HU33Z Insertion of Infusion Device into Spinal Canal, Percutaneous Approach (ICD-10-PCS; 2016-07-23)
DX: O99.824 Streptococcus B carrier state complicating childbirth (principal); O69.1XX0 Labor and delivery complicated by cord around neck, with compression, not applicable or unspecified; O76 Abnormality in fetal heart rate and rhythm complicating labor and delivery; O99.313 Alcohol use complicating pregnancy, third trimester; O99.344 Other mental disorders complicating childbirth; F41.9 Anxiety disorder, unspecified; F90.9 Attention-deficit hyperactivity disorder, unspecified type; O99.323 Drug use complicating pregnancy, third trimester; F12.90 Cannabis use, unspecified, uncomplicated; O99.331 Smoking (tobacco) complicating pregnancy, first trimester; F17.210 Nicotine dependence, cigarettes, uncomplicated; O99.72 Diseases of the skin and subcutaneous tissue complicating childbirth; L30.9 Dermatitis, unspecified; Z79.52 Long term (current) use of systemic steroids; Z37.0 Single live birth; Z3A.39 39 weeks gestation of pregnancy
CPT/HCPCS: 59025; 80307; 81001; 85025; 85461; 86850; 86900; 86901; 90384; 90715; 99285; G0481; J2540; J2590; J2790; J3010; J7120

== ENCOUNTER 2016-09-19 00:13 | Inpatient (IN) | payer OTHER ==
[~2016-09-19] VITALS: Ht 165.1 cm; Wt 60.7 kg
[~2016-09-19 00:13] MED LIST changes: +ACET1TAB86 PO; +IBUP-232 PO; +NORE0.3513 PO; -TYLE325T PO; -VIST50CA PO
[2016-09-19 00:32] VITALS: BP 103/56; PULSE 86; RESP 16; TEMP 97.8; O2SAT 97
--- NOTE | 2016-09-19 00:48 | PD ---
HPI Chief Complaint: Psychiatric Symptoms Time Seen by Provider: 00:45 Travel History International Travel<30 days: No Contact w/Intl Traveler<30days: No Traveled to known affect area: No History of Present Illness HPI Patient comes in under a [place] act by police for threatening to harm herself. Patient states her and her fianc got into an argument and she was upset, which caused her to feel like harming herself. Patient states she is 2 months and has recently started having thoughts of harming herself along with harming her baby as she would not want to and leave her baby behind. Patient states that she recently started seeing a therapist 3 weeks ago and has been doing counseling. Patient is uncertain if this is helping. Symptoms got worse tonight when she was arguing with her fianc. Patient denies any medical concerns this time. Denies any chest pain, shortness breath, fevers, abdominal pain, or headaches. PFSH Past Medical History Anxiety: Yes Diminished Hearing: No Musculoskeletal: Yes (eczema) Psychiatric: Yes (PTSD) Tetanus Vaccination: < 5 Years Influenza Vaccination: No ?: Not LMP: UNKNOWN : 1 Para: 0 Past Surgical History Surgical History: No Previous Surgery Social History Alcohol Use: Yes (OCC) Tobacco Use: No Substance Use: No Allergies-Medications (Allergen,Severity, Reaction): Coded Allergies: No Known Allergies (Unverified , 09/07/16) Reported Meds & Prescriptions Reported Meds & Active Scripts Active Diane-35 (Norethindrone) 0.35 Mg Tab 1 Tab PO DAILY Hydrocortisone Valerate Topical (Hydrocortisone Valerate) 0.2% Oint 1 Applic TOPICAL BID Ibuprofen 600 Mg Tab 600 Mg PO Q6H PRN Eq Acetaminophen (Acetaminophen) 325 Mg Tab 650 Mg PO Q4H PRN Hydrocortisone Topical 2.5% Oint 1 Applic TOPICAL BID Review of Systems Except as stated in HPI: all other systems reviewed are Neg Physical Exam Narrative GENERAL: Well-developed, well nourished, in no acute distress, and non-ill appearing. SKIN: Focused skin assessment warm and dry. HEAD: Atraumatic. Normocephalic. EYES: Pupils equal and round. EOMI. No scleral icterus. No injection or drainage. ENT: No nasal bleeding or discharge. Mucous membranes pink and moist. NECK: Trachea midline. Supple. No nuclear rigidity. CARDIOVASCULAR: Regular rate and rhythm. No murmur appreciated. RESPIRATORY: No accessory muscle use. No respiratory distress. Clear to auscultation. Breath sounds equal bilaterally. MUSCULOSKELETAL: No obvious deformities. No clubbing. No cyanosis. No edema. Full range of motion. NEUROLOGICAL: Awake and alert. No obvious cranial nerve deficits. Motor grossly within normal limits. Normal speech. PSYCHIATRIC: Appropriate mood and affect; insight and judgment abnormal. Data Data Last Documented VS Vital Signs Date Time Temp Pulse Resp B/P Pulse Ox O2 Delivery O2 Flow Rate FiO2 09/19/16 00:32 97.8 86 16 103/56 97 Orders Complete Blood Count With Diff (09/19/16 00:19) Comprehensive Metabolic Panel (09/19/16 00:19) Urinalysis - C+S If Indicated (09/19/16 00:19) Ed Urine Pregnancytest Poc (09/19/16 00:19) Psych Screen (09/19/16 00:19) Drug Screen, Random Urine (09/19/16 00:19) Alcohol (Ethanol) (09/19/16 00:19) Salicylates (Aspirin) (09/19/16 00:19) Tylenol (Acetaminophen) (09/19/16 00:19) Labs Laboratory Tests Test 09/19/16 09/19/16 00:40 00:45 White Blood Count 9.4 TH/MM3 Red Blood Count 3.85 MIL/MM3 Hemoglobin 11.9 GM/DL Hematocrit 34.0 % Mean Corpuscular Volume 88.3 FL Mean Corpuscular Hemoglobin 30.9 PG Mean Corpuscular Hemoglobin 35.0 % Concent Red Cell Distribution Width 11.9 % Platelet Count 227 TH/MM3 Mean Platelet Volume 8.1 FL Neutrophils (%) (Auto) 57.1 % Lymphocytes (%) (Auto) 22.7 % Monocytes (%) (Auto) 7.5 % Eosinophils (%) (Auto) 11.4 % Basophils (%) (Auto) 1.3 % Neutrophils # (Auto) 5.4 TH/MM3 Lymphocytes # (Auto) 2.1 TH/MM3 Monocytes # (Auto) 0.7 TH/MM3 Eosinophils # (Auto) 1.1 TH/MM3 Basophils # (Auto) 0.1 TH/MM3 CBC Comment DIFF FINAL Differential Comment Sodium Level 142 MEQ/L Potassium Level 3.8 MEQ/L Chloride Level 106 MEQ/L Carbon Dioxide Level 27.5 MEQ/L Anion Gap 9 MEQ/L Blood Urea Nitrogen 16 MG/DL Creatinine 0.80 MG/DL Estimat Glomerular Filtration 89 ML/MIN Rate Random Glucose 90 MG/DL Calcium Level 9.2 MG/DL Total Bilirubin 0.2 MG/DL Aspartate Amino Transf 12 U/L (AST/SGOT) Alanine Aminotransferase 21 U/L (ALT/SGPT) Alkaline Phosphatase 70 U/L Total Protein 6.9 GM/DL Albumin 3.6 GM/DL Salicylates Level LESS THAN 1.7 MG/DL Acetaminophen Level LESS THAN 2.0 MCG/ML Ethyl Alcohol Level LESS THAN 3 MG/DL Urine Color YELLOW Urine Turbidity CLEAR Urine pH 5.5 Urine Specific [place] 1.020 Urine Protein NEG mg/dL Urine Glucose (UA) NEG mg/dL Urine Ketones NEG mg/dL Urine Occult Blood NEG Urine Nitrite NEG Urine Bilirubin NEG Urine Urobilinogen LESS THAN 2.0 MG/DL Urine Leukocyte Esterase MOD Urine RBC 1 /hpf Urine WBC 3 /hpf Urine Squamous Epithelial 7 /hpf Cells Microscopic Urinalysis Comment CULT NOT INDICATED Urine Opiates Screen NEG Urine Barbiturates Screen NEG Urine Amphetamines Screen NEG Urine Benzodiazepines Screen NEG Urine Cocaine Screen NEG Urine Cannabinoids Screen POS [facility] Medical Decision Making Medical Screen Exam Complete: Yes Emergency Medical Condition: Yes Differential Diagnosis Homicidal, suicidal, depression, electrolyte abnormality, other Narrative Course Patient was seen and examined. Labs were obtained and reviewed. Patient medically cleared for further treatment and evaluation by psych. Final disposition per psych. Diagnosis Primary Impression: Medical clearance for psychiatric admission Condition: Stable Mario Davidson Sep 19, 2016 00:48
[2016-09-19 01:19] LABS: AUTOMATED NEUTROPHIL # 5.4 TH/MM3 (1.8-7.7); BASOPHIL # 0.1 TH/MM3 (0-0.2); BASOPHIL % 1.3 % (0.0-2.0); EOSINOPHIL # 1.1 TH/MM3 (0-0.4); EOSINOPHIL % 11.4 % (0.0-4.0); HEMO FLAGS DIFF FINAL; LYMPH % 22.7 % (9.0-44.0); LYMPHOCYTE # 2.1 TH/MM3 (1.0-4.8); MEAN CELL VOLUME 88.3 FL (80.0-100.0); MEAN CORPUSCULAR HEMOGLOBIN 30.9 PG (27.0-34.0); MONO % 7.5 % (0.0-8.0); NEUT % 57.1 % (16.0-70.0); PLATELET COUNT 227 TH/MM3 (150-450); RED BLOOD COUNT 3.85 MIL/MM3 (4.00-5.30); RED CELL DISTRIBUTION WIDTH 11.9 % (11.6-17.2); WHITE BLOOD COUNT 9.4 TH/MM3 (4.0-11.0)
[2016-09-19 01:23] LABS: AMPHETAMINE, URINE NEG (NEG); BARBITURATES, URINE NEG (NEG); BLOOD, URINE NEG (NEG); COCAINE, URINE NEG (NEG); COMMENT (UR) CULT NOT INDICATED; CULTURE IF INDICATED CULT NOT INDICATED; GLUCOSE,URINE NEG (NEG); KETONE, URINE NEG (NEG); NITRITE,URINE NEG (NEG); PH, URINE 5.5 (5.0-8.5); SQUAMOUS EPITHELIAL CELL URINE 7 /hpf (0-5); URINE COLOR YELLOW (YELLW/STRAW)
[2016-09-19 01:40] LABS: ANION GAP 9 MEQ/L (5-15); AST (GOT) 12 U/L (15-37); BICARBONATE 27.5 MEQ/L (21.0-32.0); BLOOD UREA NITROGEN 16 MG/DL (7-18); CHLORIDE 106 MEQ/L (98-107); GLOMERULAR FILTRATION RATE 89 ML/MIN (>89); POTASSIUM 3.8 MEQ/L (3.5-5.1); SODIUM (NA) 142 MEQ/L (136-145)
[2016-09-19 01:44] LABS: ACETAMINOPHEN LESS THAN 2.0 MCG/ML (10.0-30.0); ALKALINE PHOSPHATASE 70 U/L (45-117); ALT (GPT) 21 U/L (10-53); TOTAL BILIRUBIN ADULT 0.2 MG/DL (0.2-1.0)
[2016-09-19 15:01] VITALS: BP 104/55; PULSE 77; RESP 18; O2SAT 98
[2016-09-19 18:02] VITALS: BP 103/68; PULSE 75; RESP 18; O2SAT 98
[2016-09-19] MEDS ORDERED: diphenhydrAMINE HCL 50 MG CAP PO ONE (19:00)
[2016-09-19 22:00] VITALS: BP 113/47; PULSE 70; RESP 16; O2SAT 97
[2016-09-20 06:22] VITALS: BP 103/55; PULSE 67; RESP 18; O2SAT 98
[2016-09-20] MEDS ORDERED: diphenhydrAMINE HCL 50 MG CAP PO ONE (09:15)
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
[2016-09-20] MEDS ORDERED: MAGNESIUM HYDROXIDE SUSP 30 ML CUP PO PRN (09:45)
[2016-09-20] MEDS ORDERED: ALUMINUM/MAGNESIUM/SIMETH 30 ML CUP PO PRN (09:45)
[2016-09-20] MEDS ORDERED: ACETAMINOPHEN 325 MG TAB PO PRN (09:45)
[2016-09-20 11:30] VITALS: BP 114/71; PULSE 80; RESP 18; TEMP 94.7; O2SAT 99
[2016-09-20 16:30] VITALS: BP 117/69; PULSE 80; RESP 16; TEMP 98.7; O2SAT 98
--- NOTE | 2016-09-20 16:43 | PD.CONS ---
HPI Service [facility] Consult Requested By Psychiatry team Reason for Consult Medical management - eczema Primary Care Physician Unknown Diagnoses: History of Present Illness Written by Geraldine Joel, acting as scribe for Dr. Ovalles on 09/20/16 at 16:29. This note was transcribed by simon GARCIA. I, Dr. Laura Ovalles personally performed the history, physical exam, and medical decision making; and confirmed the accuracy of the information in the transcribed note. Authenticated by Dr. Laura Ovalles on 09/20/16 at 16:29. Patient is a 25-year-old female with primary medical history of eczema , marijuana abuse, anxiety who came in to the hospital under Gastelum act by police secondary to suicidal ideation. As per records, patient had an argument with her fianc and got upset which caused her to feel like harming herself. Patient is 2 months and recently started having thoughts of harming herself, with harming the baby that she would not want to and leave her baby behind. She is now admitted to inpatient psychiatry unit for further evaluation. Consulted for medical management of eczema. Patient seen and examined today. Reports that she was seen prior by family medicine and clinic as an outpatient visit and was referred to dermatology for her eczema. She had eczema since she was about 12 years old. She saw the financial specialist and was given phototherapy and supposedly to start on creams and oils. She cannot remember what creams and oral she was using. She only has one time phototherapy session before being admitted to inpatient psychiatry unit. States that she was also on and off short-term use of prednisone secondary to her eczema flareup. She thinks it she had another flare up right now and it's severe from previous and she if she doesn't start taking any medication she would "wake up in the morning with puffy eyes and swollen face." States that gave her more flareups in her eczema. She usually had it in her face, her scalp, and inner parts of her hand. Now she has it on her face, neck, torso and breast area, arms, some parts of her legs. Otherwise, denies pain and discomfort. Denies SOB/ dyspnea. Denies chest pain, palpitations, headaches, dizziness. Denies fevers, chills, n/v/d. Review of Systems Except as stated in HPI: all other systems reviewed are Neg Past Family Social History Allergies: Coded Allergies: No Known Allergies (Unverified , 09/07/16) Past Medical History Eczema Marijuana abuse Anxiety Past Surgical History None Reported Medications Reported Meds & Active Scripts Active Diane-35 (Norethindrone) 0.35 Mg Tab 1 Tab PO DAILY Hydrocortisone Valerate Topical (Hydrocortisone Valerate) 0.2% Oint 1 Applic TOPICAL BID Ibuprofen 600 Mg Tab 600 Mg PO Q6H PRN Eq Acetaminophen (Acetaminophen) 325 Mg Tab 650 Mg PO Q4H PRN Hydrocortisone Topical 2.5% Oint 1 Applic TOPICAL BID Active Ordered Medications Current Medications Medications (Trade) Dose Ordered Sig/Diana Route Start Time Stop Time Status Last Admin (Tylenol) 650 mg Q4H PRN PO 09/20/16 09:45 (Milk Of Magnesia Liq) 30 ml DAILY PRN PO 09/20/16 09:45 (Mag-Al Plus Susp Liq) 30 ml Q6H PRN PO 09/20/16 09:45 Family History Bipolar, hypertension, sleep apnea is in the family Social History Alcohol use almost every day 1-2 glasses of wine Quit smoking during Marijuana use 1 week ago, almost every week, usually 2 weeks straight in a month Physical Exam Vital Signs Vital Signs Date Time Temp Pulse Resp B/P Pulse Ox O2 Delivery O2 Flow Rate FiO2 09/20/16 11:30 94.7 80 18 114/71 99 09/20/16 06:22 67 18 103/55 98 Room Air 09/19/16 22:00 70 16 113/47 97 Room Air 09/19/16 18:02 75 18 103/68 98 Room Air Physical Exam GENERAL: This is a well-nourished, well-developed patient, in no apparent distress. SKIN: Eczematous rash throughout face, neck area, trunk area, bilateral arms to pull patches, patches left and right thigh area. HEAD: Normocephalic.. EYES: Pupils equal round and reactive. Extraocular motions intact. No scleral icterus. No injection or drainage. ENT: Nose without bleeding. Throat without erythema. Uvula midline. Airway patent. NECK: Trachea midline. CARDIOVASCULAR: Regular rate and rhythm without murmurs, gallops, or rubs. RESPIRATORY: Clear to auscultation. Breath sounds equal bilaterally. No wheezes , rales, or rhonchi. GASTROINTESTINAL: Abdomen soft, non-tender, nondistended. No guarding. Bowel sounds active 4 MUSCULOSKELETAL: Extremities without clubbing, cyanosis, or edema. NEUROLOGICAL: Awake and alert. Motor and sensory grossly within normal limits. Normal speech. Result Diagram: 09/19/163909/19/1639 Assessment and Plan Problem List: (1) Eczema ICD Code: L30.9 Status: Acute Assessment and Plan Patient is a 25-year-old female with primary medical history of eczema , marijuana abuse, anxiety who came in to the hospital under Gastelum act by police secondary to suicidal ideation. As per records, patient had an argument with her fianc and got upset which caused her to feel like harming herself. Patient is 2 months and recently started having thoughts of harming herself, with harming the baby that she would not want to and leave her baby behind. She is now admitted to inpatient psychiatry unit for further evaluation. Consulted for medical management of eczema. Suicidal ideation - Managed by psychiatry team Eczema, moderate to severe exacerbation - Prednisone 10 mg 5 days - Beclomethasone cream 0.05% twice a day 14 days - Supportive care DVT prop ambulatory Code Status Full code Discussed Condition With Patient, nursing Geraldine Macedo Sep 20, 2016 16:42 Laura Ovalles MD Sep 20, 2016 16:43
[2016-09-20] MEDS: predniSONE 10 MG TAB PO SCH (18:21)
[2016-09-20] MEDS: BETAMETHASONE DIPROPIONATE 0.05% CREAM 15 GM TOPICAL SCH (21:00)
[2016-09-21 05:48] VITALS: BP 124/81; PULSE 73; RESP 16; TEMP 98.2; O2SAT 100
[2016-09-21] MEDS: predniSONE 10 MG TAB PO SCH ×2 (08:15→20:05)
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
[2016-09-21] MEDS ORDERED: BENZTROPINE MESYLATE 1 MG TAB PO PRN (08:45)
[2016-09-21] MEDS ORDERED: traZODone HCL 50 MG TAB PO PRN (08:45)
[2016-09-21] MEDS ORDERED: BENZTROPINE MESYLATE 2 MG/2 ML VIAL IM PRN (08:45)
[2016-09-21] MEDS: BETAMETHASONE DIPROPIONATE 0.05% CREAM 15 GM TOPICAL SCH ×2 (09:00→21:00)
[2016-09-21] MEDS: ESCITALOPRAM OXALATE 10 MG TAB PO SCH (09:36)
[2016-09-21] MEDS ORDERED: LORazepam 2 MG/ML VIAL IV PUSH PRN ×4 (10:00)
[2016-09-21] MEDS ORDERED: FLUMAZENIL 0.5 MG/5 ML VIAL IV PUSH PRN (10:00)
[2016-09-21] MEDS ORDERED: LORazepam 2 MG TAB PO PRN (10:00)
[2016-09-21] MEDS ORDERED: LORazepam 1 MG TAB PO PRN (10:00)
[2016-09-21 12:48] LABS: ANION GAP 6 MEQ/L (5-15); BLOOD UREA NITROGEN 13 MG/DL (7-18); CHLORIDE 100 MEQ/L (98-107); GLOMERULAR FILTRATION RATE 92 ML/MIN (>89); POTASSIUM 3.5 MEQ/L (3.5-5.1); SODIUM (NA) 139 MEQ/L (136-145)
[2016-09-21 12:57] LABS: HDL CHOLESTEROL 50.4 MG/DL (40.0-60.0); LDL CHOLESTEROL 80 MG/DL (0-99)
[2016-09-21 15:46] LABS: HEMOGLOBIN A1a 1.1 %; HEMOGLOBIN A1b 0.6 %; HEMOGLOBIN LA1C 1.9 %; HEMOGLOBIN P3 3.3 %
[2016-09-21 17:34] VITALS: BP 114/62; PULSE 87; RESP 16; TEMP 98.6; O2SAT 96
[2016-09-21] MEDS: hydrOXYzine HCL 50 MG TAB PO PRN (22:32)
[2016-09-22 06:03] VITALS: BP 100/53; PULSE 64; RESP 18; TEMP 97.9; O2SAT 96
[2016-09-22] MEDS: BETAMETHASONE DIPROPIONATE 0.05% CREAM 15 GM TOPICAL SCH ×2 (09:00→21:00)
[2016-09-22] MEDS: FOLIC ACID 1 MG TAB PO SCH (09:39)
[2016-09-22] MEDS: THIAMINE HCL 100 MG TAB PO SCH (09:39)
[2016-09-22] MEDS: predniSONE 10 MG TAB PO SCH (09:40)
[2016-09-22] MEDS: ESCITALOPRAM OXALATE 10 MG TAB PO SCH (09:40)
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
--- NOTE | 2016-09-22 15:42 | HHI.PYPN ---
Subjective Remarks Pt seen and discussed with staff. She reports that mood is improved and intensity of depression symptoms are decreased today. She denies SI/HI. She reports numerous stressors contributing to depression including sleep deprivation from caring or and pressure of being sole financial support of family at this time. No medication side effects. Objective Alert: Yes [place]: Person, Place, Date, Situation Mood: Depressed Affect: Appropriate Memory Intact: Comment (no impairmetn) Hallucinations: Other (none) Delusions: No Delusion Type: Other (negative) Suicidal: Ideation (deneis at present) Homicidal: Ideation (deneis at present) Insight/Judgment fair Vitals/IOs Vital Signs Date Time Temp Pulse Resp B/P Pulse Ox O2 Delivery O2 Flow Rate FiO2 09/22/16 06:03 97.9 64 18 100/53 96 09/20/16 06:22 Room Air Assessment & Plan Problem List: (1) Major depressive disorder, recurrent severe without psychotic features ICD Code: F33.2 (2) Anxiety disorder ICD Code: F41.9 Assessment & Plan Continue current tx plan Estimated LOS: days Justification for Cont. Inpt. monitoring for safety Request HC Surrog/Guard Advoc?: No Problem Qualifiers (1) Anxiety disorder: Qualified Code: F41.9 - Anxiety disorder, unspecified type Kristi Maldonado MD Sep 22, 2016 15:42
[2016-09-22] MEDS ORDERED: BETA0.052 TOPICAL (17:29)
[2016-09-22 18:43] VITALS: BP 99/62; PULSE 62; RESP 14; TEMP 97.9; O2SAT 96
[2016-09-22] MEDS: hydrOXYzine HCL 50 MG TAB PO PRN (21:48)
[2016-09-23 06:13] VITALS: BP 100/57; PULSE 51; RESP 17; TEMP 98.2; O2SAT 98
[2016-09-23] MEDS: THIAMINE HCL 100 MG TAB PO SCH (08:37)
[2016-09-23] MEDS: FOLIC ACID 1 MG TAB PO SCH (08:37)
[2016-09-23] MEDS: ESCITALOPRAM OXALATE 10 MG TAB PO SCH (08:38)
[2016-09-23] MEDS: BETAMETHASONE DIPROPIONATE 0.05% CREAM 15 GM TOPICAL SCH ×2 (08:40→21:43)
--- NOTE | 2016-09-23 15:42 | HHI.PYPN ---
Subjective Remarks Pt seen and discussed with staff. She has been more isolative to room today,but reports mood is better today. She has a good visit with family. No SI/HI. Objective Alert: Yes [place]: Person, Place, Date, Situation Mood: Depressed Affect: Appropriate Memory Intact: Comment (intact) Hallucinations: Other (none) Delusions: No Delusion Type: Other (negative) Suicidal: Ideation (deneis at present) Homicidal: Ideation (deneis at present) Insight/Judgment fair Vitals/IOs Vital Signs Date Time Temp Pulse Resp B/P Pulse Ox O2 Delivery O2 Flow Rate FiO2 09/23/16 06:13 98.2 51 17 100/57 98 09/20/16 06:22 Room Air Assessment & Plan Problem List: (1) Major depressive disorder, recurrent severe without psychotic features ICD Code: F33.2 (2) Anxiety disorder ICD Code: F41.9 Assessment & Plan Continue current tx plan. Estimated LOS: days Justification for Cont. Inpt. monitoring for safety Request HC Surrog/Guard Advoc?: No Problem Qualifiers (1) Anxiety disorder: Qualified Code: F41.9 - Anxiety disorder, unspecified type Kristi Maldonado MD Sep 23, 2016 15:42
[2016-09-23 16:56] VITALS: BP 109/64; PULSE 68; RESP 16; TEMP 98; O2SAT 98
[2016-09-24 06:00] VITALS: BP 94/55; PULSE 67; RESP 16; TEMP 97.4; O2SAT 98
[2016-09-24] MEDS: BETAMETHASONE DIPROPIONATE 0.05% CREAM 15 GM TOPICAL SCH (09:00)
[2016-09-24] MEDS: THIAMINE HCL 100 MG TAB PO SCH (09:07)
[2016-09-24] MEDS: ESCITALOPRAM OXALATE 10 MG TAB PO SCH (09:07)
[2016-09-24] MEDS: FOLIC ACID 1 MG TAB PO SCH (09:07)
[2016-09-24] MEDS: predniSONE 10 MG TAB PO SCH (09:07)
[2016-09-24] MEDS ORDERED: LEXA20TA PO (11:49)
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
== END 2016-09-24 13:30 | disposition home or self-care (01) | DRG 885 ==
LOC: NEPD 00:13 → NEDA 09-20 09:47 → H260 09-20 10:30
PROVIDERS: ADMIT Psychiatry & Neurology Psychiatry; ATTEND Psychiatry & Neurology Psychiatry
DX: F33.41 Major depressive disorder, recurrent, in partial remission (principal); F41.9 Anxiety disorder, unspecified; F43.10 Post-traumatic stress disorder, unspecified; F12.90 Cannabis use, unspecified, uncomplicated; Z72.0 Tobacco use; Z81.8 Family history of other mental and behavioral disorders; L30.9 Dermatitis, unspecified
CPT/HCPCS: 80048; 80053; 80061; 80307; 81001; 83036; 84443; 84703; 85025; J7512; Q0163

== ENCOUNTER 2016-11-16 09:40 | Emergency (ER) | payer MEDICAID, OTHER ==
[~2016-11-16] VITALS: Ht 165.1 cm; Wt 60.5 kg
[~2016-11-16 09:40] MED LIST changes: -ACET1TAB86 PO; +BETA0.052 TOPICAL; -HYDR0.2O7 TOPICAL; -HYDR2.5O TOPICAL; -IBUP-232 PO; +LEXA20TA PO; -PRED20 PO; -TRICTAB PO
[2016-11-16 09:41] VITALS: BP 94/62; PULSE 86; RESP 12; TEMP 98.5; O2SAT 98
[2016-11-16] MEDS ORDERED: SODIUM CHLOR 0.9% 1000 ML INJ 1,000 ML IV ONE (09:57)
[2016-11-16] MEDS ORDERED: ONDANSETRON HCL 4 MG/2 ML VIAL IVP ONE (10:00)
[2016-11-16] MEDS ORDERED: SODIUM CHLORIDE 0.9% FLUSH 10 ML FLUSH IVF PRN (10:00)
[2016-11-16] MEDS ORDERED: MORPHINE SULFATE 4 MG/ML INJ IV ONE (10:00)
--- NOTE | 2016-11-16 10:08 | PD ---
HPI . Diarrhea Chief Complaint: GI Complaint Time Seen by Provider: 09:50 Travel History International Travel<30 days: No Contact w/Intl Traveler<30days: No Traveled to known affect area: No History of Present Illness HPI Patient presents with chief complaint of diarrhea. Onset was yesterday. She states that she had 5 episodes of loose stools which looked like "baby poop." She reports 2 watery stools today. She states that she has some associated nausea but no vomiting. She further describes a headache and dizziness. No modifying factors. No known sick exposures or bad food. At triage, she rated her pain 9/10. When she was evaluated in the room, she rated her pain as 0/10. PFSH Past Medical History Arthritis: No Asthma: No Autoimmune Disease: No Anxiety: Yes Depression: Yes Heart Rhythm Problems: No Cancer: No (per pt) Cardiovascular Problems: No (per pt) High Cholesterol: No Chemotherapy: No Chest Pain: No Congestive Heart Failure: No COPD: No Cerebrovascular Accident: No Diabetes: No (per pt) Diminished Hearing: No Endocrine: No GERD: No Genitourinary: No Headaches: No (per pt) Hiatal Hernia: No Immune Disorder: No Kidney Stones: No Musculoskeletal: No Neurologic: No Psychiatric: Yes (history or anxiety and PTSD) Reproductive: No Respiratory: No Migraines: No Radiation Therapy: No Renal Failure: No Seizures: No (per pt) Sickle Cell Disease: No Sleep Apnea: No Thyroid Disease: No Ulcer: No Tetanus Vaccination: < 5 Years ?: Not LMP: OCT 2016 : 1 Para: 0 Past Surgical History Abdominal Surgery: No AICD: No Arteriovenous Shunt: No Cardiac Surgery: No Ear Surgery: No Endocrine Surgery: No Eye Surgery: No Genitourinary Surgery: No Gynecologic Surgery: No Insulin Pump: No Joint Replacement: No Oral Surgery: No Pacemaker: No Thoracic Surgery: No Social History Alcohol Use: No Tobacco Use: No Substance Use: No (denies) Allergies-Medications (Allergen,Severity, Reaction): Coded Allergies: No Known Allergies (Unverified , 09/07/16) Reported Meds & Prescriptions Reported Meds & Active Scripts Active No Active Prescriptions or Reported Medications Review of Systems Except as stated in HPI: all other systems reviewed are Neg General / Constitutional: No: Fever, Chills HENT: Positive: Headaches, Lightheadedness Cardiovascular: No: Chest Pain or Discomfort Respiratory: No: Shortness of Breath Gastrointestinal: Positive: Nausea, Diarrhea, Abdominal Pain, No: Vomiting Genitourinary: No: Urgency, Frequency, Dysuria Physical Exam Narrative GENERAL: Patient looks comfortable. SKIN: warm/dry. She has an eczematous rash. HEAD: Normocephalic. Atraumatic. EYES: Pupils equal and round. No scleral icterus. No injection or drainage. ENT: No nasal bleeding or discharge. Mucous membranes pink and moist. NECK: Trachea midline. Full range of motion without pain.. CARDIOVASCULAR: Regular rate and rhythm. Heart sounds are normal. RESPIRATORY: No accessory muscle use. Clear to auscultation. Breath sounds equal bilaterally. GASTROINTESTINAL: Abdomen soft. Nontender. Bowel sounds present. Nondistended. MUSCULOSKELETAL: No obvious deformities. NEUROLOGICAL: Awake and alert. No obvious cranial nerve deficits. Motor grossly within normal limits. Normal speech. PSYCHIATRIC: Appropriate mood and affect; insight and judgment normal. Data Data Last Documented VS Vital Signs Date Time Temp Pulse Resp B/P (MAP) Pulse Ox O2 Delivery O2 Flow Rate FiO2 11/16/16 10:14 83 18 103/64 (77) 100 Room Air 11/16/16 09:41 98.5 Orders Orders Urinalysis - C+S If Indicated (11/16/16 09:57) Iv Access Insert/Monitor (11/16/16 09:57) Morphine Inj (Morphine Inj) (11/16/16 10:00) Ondansetron Inj (Zofran Inj) (11/16/16 10:00) Sodium Chlor 0.9% 1000 Ml Inj (Ns 1000 M (11/16/16 09:57) Sodium Chloride 0.9% Flush (Ns Flush) (11/16/16 10:00) Ed Urine Pregnancytest Poc (11/16/16 09:57) Labs Laboratory Tests Test 11/16/16 10:05 Urine Color YELLOW Urine Turbidity CLEAR Urine pH 5.5 Urine Specific [place] 1.013 Urine Protein NEG mg/dL Urine Glucose (UA) NEG mg/dL Urine Ketones NEG mg/dL Urine Occult Blood NEG Urine Nitrite NEG Urine Bilirubin NEG Urine Urobilinogen LESS THAN 2.0 MG/DL Urine Leukocyte Esterase NEG Urine RBC LESS THAN 1 /hpf Urine WBC 1 /hpf Urine Mucus FEW /lpf Microscopic Urinalysis Comment CULT NOT INDICATED MDM Medical Decision Making Medical Screen Exam Complete: Yes Emergency Medical Condition: Yes Differential Diagnosis Differential diagnosis of diarrhea includes but is not limited to early enteritis, bacterial enteritis, antibiotic induced diarrhea, irritable bowel syndrome Narrative Course This patient presents with diarrhea. She does not appear ill. She is complaining with lightheadedness. She will be treated with a fluid bolus along with Zofran and morphine. UA is negative. HCG is negative. This patient is stable for discharge to home. Diagnosis Primary Impression: Diarrhea Qualified Codes: R19.7 - Diarrhea, unspecified Patient Instructions: Acute Diarrhea (ED), General Instructions Additional Instructions: Drink plenty of fluids. Scripts No Active Prescriptions or Reported Meds Disposition: 01 DISCHARGE HOME Condition: Stable Caty Aguila MD Nov 16, 2016 10:08
[2016-11-16 10:14] VITALS: BP 103/64; PULSE 83; RESP 18; O2SAT 100
[2016-11-16 10:49] LABS: BLOOD, URINE NEG (NEG); GLUCOSE,URINE NEG (NEG); KETONE, URINE NEG (NEG); NITRITE,URINE NEG (NEG); PH, URINE 5.5 (5.0-8.5); URINE COLOR YELLOW (YELLW/STRAW)
[2016-11-16 10:51] LABS: COMMENT (UR) CULT NOT INDICATED; CULTURE IF INDICATED CULT NOT INDICATED; MUCUS URINE FEW /lpf (OCC)
[2016-11-16 11:31] VITALS: BP 94/55
[2016-12-19] MEDS ORDERED: TRIA.025%T TOPICAL (15:53)
== END 2016-11-16 11:45 | disposition home or self-care (01) ==
LOC: NEPD 09:40
DX: R19.7 Diarrhea, unspecified (principal); R11.0 Nausea; R51 Headache; R42 Dizziness and giddiness
CPT/HCPCS: 81001; 84703; 96361; 96374; 96375; 99284; J2270; J2405; J7030

== ENCOUNTER 2016-11-24 10:47 | Emergency (ER) | payer MEDICAID ==
[~2016-11-24] VITALS: Ht 165.1 cm; Wt 60.0 kg
[2016-11-24 10:49] VITALS: BP 102/52; PULSE 77; RESP 15; TEMP 98.2; O2SAT 98
--- NOTE | 2016-11-24 11:08 | PD ---
HPI Chief Complaint: Eye Problems/Injury Time Seen by Provider: 10:53 Travel History International Travel<30 days: No Contact w/Intl Traveler<30days: No Traveled to known affect area: No History of Present Illness HPI This patient complains of redness and irritation in both eyes. Vision is normal. She does not wear contact lenses. She is not having eye pain or purulent drainage. Severity is mild. She works at [employer] and they would not have her come back to work with her eyes like that. PFSH Past Medical History Arthritis: No Asthma: No Autoimmune Disease: No Anxiety: Yes Depression: Yes Heart Rhythm Problems: No Cancer: No (per pt) Cardiovascular Problems: No (per pt) High Cholesterol: No Chemotherapy: No Chest Pain: No Congestive Heart Failure: No COPD: No Cerebrovascular Accident: No Diabetes: No (per pt) Diminished Hearing: No Endocrine: No GERD: No Genitourinary: No Headaches: No (per pt) Hiatal Hernia: No Immune Disorder: No Kidney Stones: No Musculoskeletal: No Neurologic: No Psychiatric: Yes (history or anxiety and PTSD) Reproductive: No Respiratory: No Migraines: No Radiation Therapy: No Renal Failure: No Seizures: No (per pt) Sickle Cell Disease: No Sleep Apnea: No Thyroid Disease: No Ulcer: No ?: Not : 1 Para: 0 Past Surgical History Abdominal Surgery: No AICD: No Arteriovenous Shunt: No Cardiac Surgery: No Ear Surgery: No Endocrine Surgery: No Eye Surgery: No Genitourinary Surgery: No Gynecologic Surgery: No Insulin Pump: No Joint Replacement: No Oral Surgery: No Pacemaker: No Thoracic Surgery: No Social History Alcohol Use: No Tobacco Use: No Substance Use: No (denies) Allergies-Medications (Allergen,Severity, Reaction): Coded Allergies: No Known Allergies (Unverified , 09/07/16) Reported Meds & Prescriptions Reported Meds & Active Scripts Active No Active Prescriptions or Reported Medications Review of Systems General / Constitutional: No: Fever HENT: No: Headaches Cardiovascular: No: Chest Pain or Discomfort Physical Exam Narrative SKIN: Focused skin assessment reveals no rash or ulcers. Skin is warm and dry. Palpation shows no induration or nodules. NECK: Symmetrical appearance, midline trachea. No mass or crepitus. Thyroid without enlargement, tenderness, or mass. Psych: Normal mood and affect. Normal insight and judgment. Eyes: Sclerae diffusely injected but no drainage. Pupil function normal. Extraocular muscles intact. Eyes look symmetric in appearance. Data Data Last Documented VS Vital Signs Date Time Temp Pulse Resp B/P (MAP) Pulse Ox O2 Delivery O2 Flow Rate FiO2 11/24/16 10:54 16 11/24/16 10:49 98.2 77 102/52 (69) 98 MDM Medical Decision Making Medical Screen Exam Complete: Yes Emergency Medical Condition: Yes Medical Record Reviewed: Yes Differential Diagnosis Conjunctivitis, iritis, corneal foreign body Narrative Course I have reviewed the patient's electronic medical record. Presentation is consistent with acute conjunctivitis, I suspect viral etiology and antibiotics not indicated No foreign body sensation or purulent drainage Suggested Opcon-A drops for symptomatic relief and hygiene measures discussed Hoping For gradual resolution spontaneously Work note provided Diagnosis Primary Impression: Acute conjunctivitis of both eyes Qualified Codes: B30.9 - Viral conjunctivitis, unspecified Additional Instructions: Wash hands frequently Avoid touching face Opcon-A eye drops can be obtain [id number] and use as needed for symptom relief The patient was advised to follow up with their physician and return if they worsen. Med/Other Pt SpecificInfo: Other Scripts No Active Prescriptions or Reported Meds Disposition: 01 DISCHARGE HOME Condition: Stable Jan Wright MD Nov 24, 2016 11:08
[2016-12-19] MEDS ORDERED: TRIA.025%T TOPICAL (15:53)
== END 2016-11-24 11:18 | disposition home or self-care (01) ==
LOC: NEPD 10:47
DX: H10.33 Unspecified acute conjunctivitis, bilateral (principal); F41.9 Anxiety disorder, unspecified; F43.10 Post-traumatic stress disorder, unspecified
CPT/HCPCS: 99282